=== PATIENT | female | born 1990 | race Caucasian/White ===

== ENCOUNTER → 2020-02-15 15:21 | Outpatient (CLI) | payer BC, SELFPAY ==
[2020-02-17 17:52] LABS: Covid-19 Nasal PCR Sendout Lex Not Detected
== END ==
PROVIDERS: PCP Physician Assistant; Visit Provider Physician Assistant
DX: Z03.818 Encounter for observation for suspected exposure to other biological agents ruled out (principal)
CPT/HCPCS: U0004

== ENCOUNTER → 2020-02-26 18:30 | Outpatient (CLI) | payer BC, SELFPAY ==
[2020-02-26 18:53] LABS: Basophils % 0.6 % (0.1-2.0); Eosinophils # 0.1 K/mm3 (0.0-0.4); Eosinophils % 1.6 % (0.1-12.0); Hematocrit 43.3 % (37.0-47.0); Hemoglobin 14.3 g/dL (12.2-16.2); Lymphocytes # 2.6 K/mm3 (0.7-4.5); Lymphocytes % 47.3 % (10-50); Mean Corpuscular HGB Conc 33.1 g/dL (31.8-35.4); Mean Corpuscular Hemoglobin 31.5 pg (27.0-31.2); Mean Corpuscular Volume 95.3 fl (81-99); Mean Platelet Volume 9.4 fl (7.4-10.4); Monocytes # 0.3 K/mm3 (0.1-1.0); Monocytes % 4.5 % (1.7-9.3); Neutrophils # 2.5 K/mm3 (1.8-7.8); Neutrophils % 46.1 % (37.0-80.0); Platelet Count 303 K/mm3 (142-424); Red Blood Count 4.55 M/mm3 (4.20-5.40); Red Cell Distribution Width 13.1 % (11.5-17.5); White Blood Count 5.5 K/mm3 (4.8-10.8)
[2020-02-26 18:54] LABS: Alanine Aminotransferase 15 U/L (12-78); Albumin Level 4.8 g/dl (3.5-5.0); Albumin/Globulin Ratio 1.5 (1.1-1.8); Alkaline Phosphatase 67 U/L (38-126); Anion Gap 14.6 mEq/L (5-15); Aspartate Amino Transferase 24 U/L (14-36); Bilirubin,Total 0.7 mg/dl (0.2-1.3); Blood Urea Nitrogen 21 mg/dl (7-17); Calcium 9.7 mg/dl (8.4-10.2); Carbon Dioxide 24 mmol/L (22.0-30.0); Chloride 105 mmol/L (98-107); Chol/HDL Ratio 2.5 (1-3.5); Cholesterol 165 mg/dl (140-200); Estimated Glomerular Filt Rate 75 ml/min (>60); GFR (African American) 91 ML/MIN (>60); Globulin 3.2 g/dL (1.3-3.2); Glucose 99 mg/dl (74-100); HDL Cholesterol 66 mg/dl (40-60); Potassium 4.6 mmoL/L (3.5-5.1); Sodium 139 mmol/L (136-145); Triglycerides 64 mg/dl (30-150); VLDL Cholesterol 13 mg/dL (0-40)
[2020-02-26 19:05] LABS: Direct LDL Cholesterol 79.08 mg/dL (100-129)
[2020-02-26 19:11] LABS: 25-OH Vitamin D, Total 20.3 ng/mL (30-100)
[2020-02-26 19:25] LABS: Thyroid Stimulating Hormone 1.06 uIU/mL (0.465-4.68)
== END ==
PROVIDERS: Visit Provider Physician Assistant
DX: Z00.00 Encounter for general adult medical examination without abnormal findings (principal); F90.9 Attention-deficit hyperactivity disorder, unspecified type; W57.XXXA Bitten or stung by nonvenomous insect and other nonvenomous arthropods, initial encounter
CPT/HCPCS: 80053; 80061; 82306; 84443; 85025

== ENCOUNTER → 2020-03-25 11:46 | Outpatient (CLI) | payer BC, SELFPAY | PROVIDERS: PCP Physician Assistant; Visit Provider Physician Assistant | DX: Z20.822 Contact with and (suspected) exposure to COVID-19 (principal); U07.1 COVID-19 | CPT/HCPCS: U0003 ==

== ENCOUNTER → 2021-05-12 16:00 | Outpatient (CLI) | payer BC, SELFPAY ==
[2021-05-12 17:45] LABS: Benzodiazepines Screen,Urine Negative ng/ml (<200)
[2021-05-12 17:46] LABS: Amphetamine/Metha Screen,Urine Positive ng/ml (<1000); Barbiturates Screen,Urine Negative ng/ml (<200)
[2021-05-12 17:47] LABS: Cannabinoid Screen,Urine Negative ng/ml (<50); Cocaine Screen,Urine Negative ng/ml (<300)
[2021-05-12 17:48] LABS: Methadone Screen,Urine Negative ng/ml (<300)
[2021-05-12 17:49] LABS: Opiate Screen,Urine Negative ng/ml (<300); Phencyclidine Screen,Urine Negative ng/ml (<25)
== END ==
PROVIDERS: Visit Provider Physician Assistant
DX: F90.9 Attention-deficit hyperactivity disorder, unspecified type (principal)
CPT/HCPCS: 80305

== ENCOUNTER → 2021-11-29 09:46 | Outpatient (CLI) | payer BC, SELFPAY ==
[2021-11-27 18:28] LABS: Basophils # 0.1 K/mm3 (0-0.2); Basophils % 1.6 % (0.1-2.0); Eosinophils # 0.1 K/mm3 (0.0-0.4); Eosinophils % 1.5 % (0.1-12.0); Hematocrit 43.2 % (37.0-47.0); Hemoglobin 14.2 g/dL (12.2-16.2); Lymphocytes # 1.9 K/mm3 (0.7-4.5); Lymphocytes % 41.7 % (10-50); Mean Corpuscular HGB Conc 32.9 g/dL (31.8-35.4); Mean Corpuscular Volume 97.2 fl (81-99); Mean Platelet Volume 7.9 fl (7.4-10.4); Monocytes # 0.2 K/mm3 (0.1-1.0); Monocytes % 5.2 % (1.7-9.3); Neutrophils # 2.3 K/mm3 (1.8-7.8); Platelet Count 288 K/mm3 (142-424); Red Blood Count 4.44 M/mm3 (4.20-5.40); Red Cell Distribution Width 12.9 % (11.5-17.5); White Blood Count 4.6 K/mm3 (4.8-10.8)
[2021-11-27 18:31] LABS: Alanine Aminotransferase 16 U/L (12-78); Albumin Level 4.6 g/dl (3.5-5.0); Albumin/Globulin Ratio 1.6 (1.1-1.8); Alkaline Phosphatase 61 U/L (38-126); Anion Gap 16.8 mEq/L (5-15); Aspartate Amino Transferase 27 U/L (14-36); Bilirubin,Total 1.4 mg/dl (0.2-1.3); Blood Urea Nitrogen 10 mg/dl (7-17); Calcium 9.4 mg/dl (8.4-10.2); Carbon Dioxide 25 mmol/L (22.0-30.0); Chloride 104 mmol/L (98-107); Estimated Glomerular Filt Rate 99 ml/min (>60); GFR (African American) 120 ML/MIN (>60); Globulin 2.9 g/dL (1.3-3.2); Glucose 92 mg/dl (74-100); Potassium 4.8 mmoL/L (3.5-5.1); Sodium 141 mmol/L (136-145); Total Protein,Serum 7.5 g/dl (6.3-8.2)
[2021-11-27 19:02] LABS: Thyroid Stimulating Hormone 0.84 uIU/mL (0.465-4.68)
== END ==
PROVIDERS: PCP Physician Assistant; Visit Provider Physician Assistant
DX: R53.83 Other fatigue (principal); R20.2 Paresthesia of skin
CPT/HCPCS: 80053; 84443; 85025

== ENCOUNTER → 2021-12-17 10:45 | Outpatient (CLI) | payer BC, SELFPAY ==
[2021-12-17 13:57] LABS: Basophils # 0.1 K/mm3 (0-0.2); Basophils % 1.5 % (0.1-2.0); Eosinophils # 0.2 K/mm3 (0.0-0.4); Eosinophils % 4.4 % (0.1-12.0); Hematocrit 40.7 % (37.0-47.0); Hemoglobin 13.2 g/dL (12.2-16.2); Lymphocytes # 1.5 K/mm3 (0.7-4.5); Lymphocytes % 35.9 % (10-50); Mean Corpuscular HGB Conc 32.4 g/dL (31.8-35.4); Mean Corpuscular Hemoglobin 30.7 pg (27.0-31.2); Mean Corpuscular Volume 94.7 fl (81-99); Mean Platelet Volume 7.8 fl (7.4-10.4); Monocytes # 0.4 K/mm3 (0.1-1.0); Monocytes % 8.1 % (1.7-9.3); Neutrophils # 2.2 K/mm3 (1.8-7.8); Neutrophils % 50.1 % (37.0-80.0); Platelet Count 290 K/mm3 (142-424); Red Cell Distribution Width 13.1 % (11.5-17.5); White Blood Count 4.3 K/mm3 (4.8-10.8)
[2021-12-20 14:28] LABS: Peripheral Smear Review Scanned Result
== END ==
PROVIDERS: PCP Physician Assistant; Visit Provider Physician Assistant
DX: R79.9 Abnormal finding of blood chemistry, unspecified (principal)
CPT/HCPCS: 85025

== ENCOUNTER → 2021-12-19 12:53 | Outpatient (CLI) | payer BC, SELFPAY ==
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
== END ==
PROVIDERS: PCP Physician Assistant; Visit Provider Physician Assistant
DX: R20.2 Paresthesia of skin (principal)
CPT/HCPCS: 70553; A9576